=== PATIENT | male | born 2000 | race Caucasian/White ===

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

== ENCOUNTER 2022-10-26 16:33 | Emergency (ER) | payer OTHER, SELFPAY ==
--- NOTE | ~2022-10-26 | CT_ITS ---
EXAMINATION: CT abdomen pelvis w con INDICATION: Rectal pain, history of perirectal abscess TECHNIQUE: Computed tomographic images of the abdomen and pelvis were obtained after the administrati on of 100 cc of Omnipaque 350 intravenous contrast. The dose-length product (DLP) was 428.61 mGy-cm. Automated exposure control and iterative reconstruction technique were employed. COMPARISON: 12/11/2021 FINDINGS: The lung bases are clear. The heart size is normal. The liver, spleen, pancreas, gallbladde r, and adrenal glands are normal. The kidneys are unremarkable. No pathologically enlarged abdominal or pelvic lymph nodes are identified. There is no free intraperitoneal gas or evidence of bowel obstr uction. IMPRESSION: 1. No CT correlate for the patient's symptoms. Reviewed, dictated and finalized at location [facility]. [facility]
[2022-10-26 16:40] VITALS: BP 156/82; PULSE 97; RESP 14; TEMP 36.6; O2SAT 100
--- NOTE | 2022-10-26 17:17 | ED.GENADULT ---
HPI - General Adult General Chief complaint: Unspecified Stated complaint: possible rectal abcess Time Seen by Provider: 10/26/22 16:44 Source: patient Mode of arrival: ambulatory Limitations: no limitations History of Present Illness HPI narrative: This is a 22-year-old male with PMH of perirectal abscess who comes in with complaints of possible rectal abscess. He first noticed this 2 days ago as he was having pain with bowel movements. Pt manually explored the area and felt 2 separate lumps. Also notes that he noticed drainage of pus yesterday. He states it is only painful with BMs. Last bowel movement at 12:00 today, BMs have been regular. He reports this feels similar to his previous rectal abscess in 2020. He denies any blood in the stool. Denies any abdominal pain, nausea, vomiting. Denies fevers or any problems with urination. Denies any further complaints. Related Data Allergies Allergy/AdvReac Type Severity Reaction Status Date / Time amoxicillin [From Augmentin] AdvReac Vomiting Verified 12/14/21 02:15 clavulanic acid AdvReac Vomiting Verified 12/14/21 02:15 [From Augmentin] Review of Systems Review of Systems: CONSTITUTIONAL: Denies fever, chills, or sweats. EYES: Denies visual changes, redness, or discharge. ENT: Denies rhinorrhea, congestion, sore throat, or otalgia. CARDIOVASCULAR: Denies chest pain, palpitations, or edema. RESPIRATORY: Denies cough or dyspnea. GASTROINTESTINAL: Endorses rectal pain. Endorses rectal swelling. Denies abdominal pain, nausea, vomiting, or diarrhea. Denies hematochezia. GENITOURINARY: Denies dysuria or hematuria. SKIN: Denies rash or itching. MUSCULOSKELETAL: Denies back pain, joint pain, or myalgia. NEUROLOGIC: Denies headache, numbness, dizziness, or weakness. PSYCHIATRIC: Denies anxiety or depression. 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 HEAD: Normocephalic, atraumatic. EYES: PERRLA and EOMI. ENT: Nares clear, no rhinorrhea or epistaxis. Mucous membranes moist. Oropharynx without tonsillar hypertrophy exudate or other lesions. Bilateral TMs pearly napier nonbulging NECK: Supple. No adenopathy or masses. No carotid bruits or JVD CHEST: Clear to auscultation. No respiratory distress. No wheezes rales or rhonchi HEART: Regular rate and rhythm. No murmur heard. Normal peripheral pulses. ABDOMEN: Soft, nontender, nondistended, normal active bowel sounds. Rectal: RADHIKA performed with nurse outside event sales specialist present. Upon visual inspection there are no obvious superficial purulent collections of fluid. There is tenderness in the 5 to 6 o'clock position. Single bulge of tissue was felt in the 6:00 position. Negative for purulent drainage. Hemoccult negative. EXTREMITIES: Normal range of motion. No edema. SKIN: Warm, dry, no rash. NEURO: No focal deficits. Alert and oriented x3. PSYCH: Normal mood and affect. Course Course Emergency Course: Discussed this case with Dr. Barrios (General Surgery), persistent cover with Augmentin and discharge. We will see him in office next week. Vital Signs Vital signs: Vital Signs Temperature 97
[2022-10-26 17:47] LABS: Basophils Percent Auto 0.5 % (0.2-1.2); Eosinophils Absolute Auto 0.1 K/mm3 (0-0.3); Hemoglobin 15.5 g/dL (14.0-18.0); Immature Granulocyte Absolute 0.01 K/mm3 (0.00-0.031); Immature Granulocyte Percent A 0.1 % (0-0.5); Lymphocytes Absolute Auto 2.36 K/mm3 (0.9-3.2); Lymphocytes Percent Auto 30.8 % (18.3-44.2); Mean Corpuscular HGB Conc 34.4 g/dl (32-36); Mean Corpuscular Hemoglobin 30.5 pg (26-34); Mean Corpuscular Volume 88.6 fl (80-100); Mean Platelet Volume 11.6 fl (7.4-10.4); Monocytes Absolute Auto 0.7 K/mm3 (0.1-0.6); Monocytes Percent Auto 8.7 % (2.6-8.5); Neutrophils Absolute Auto 4.5 K/mm3 (1.3-6.7); Neutrophils Percent Auto 58.9 % (45.5-73.1); Platelet Count Result 226 k/mm3 (150-375); Red Blood Count 5.08 M/mm3 (4.6-6.20); White Blood Count 7.7 K/mm3 (4.5-10.0)
[2022-10-26 17:55] LABS: Alanine Aminotransferase 22 U/L (6-50); Albumin Level 4.5 g/dL (3.5-5.1); Alkaline Phosphatase 110 U/L (38-126); Anion Gap 8 mmol/L (8-16); Aspartate Amino Transferase 23 U/L (17-59); Bilirubin,Total 0.7 mg/dL (0.2-1.3); Blood Urea Nitrogen 8 mg/dL (9-20); Calcium 9.4 mg/dL (8.4-10.2); Carbon Dioxide 30 mmol/L (22-30); Chloride 102 mmol/L (98-107); Estimated CRCL calculation 124 ml/min; Estimated Glomerular Filt Rate > 60; Glucose 95 mg/dL (65-110); Potassium 3.9 mmol/L (3.4-5.0); Sodium 140 mmol/L (137-145)
== END 2022-10-26 20:08 | disposition home or self-care (01) ==
PROVIDERS: Emergency Provider Physician Assistant; PCP Pediatrics
DX: K62.89 Other specified diseases of anus and rectum (principal); J45.909 Unspecified asthma, uncomplicated; Z86.718 Personal history of other venous thrombosis and embolism
CPT/HCPCS: 36415; 74177; 80053; 85025; 99284; Q9967